=== PATIENT | male | born 1925 | race Caucasian/White ===

== ENCOUNTER 2016-06-03 12:31 | Emergency (ER) | payer MEDICARE, OTHER ==
[~2016-06-03] VITALS: Ht 172.7 cm; Wt 64.5 kg
[2016-06-03 12:37] VITALS: TEMP 98.2
[2016-06-03] MEDS ORDERED: NORVASC 10MG10 MG PO (14:10)
[2016-06-03] MEDS ORDERED: ZOLOFT 50MG50 MG PO (14:10)
[2016-06-03] MEDS ORDERED: PRINIVIL20 MG PO (14:10)
[2016-06-03] MEDS ORDERED: COUMADIN 5MG5 MG/TAB PO (14:11)
[2016-06-03 14:26] LABS: BASO % 0.2 % (0.0-2.0); EOS # 0.1 (0.0-0.7); EOS % 1.1 % (0-4.0); HEMATOCRIT 41.4 % (42.0-52.0); HEMOGLOBIN 14.6 g/dl (13.5-18.0); INR 2.8 (0.8-3.0); LYMPH % 22.6 % (20.0-51.0); MEAN CELL VOLUME 91 fl (80.0-100.0); MEAN CORPUSCULAR HEMOGLOBIN 32 pg (27.0-31.0); MEAN CORPUSCULAR HGB CONC 35 g/dl (33.0-37.0); MEAN PLATELET VOLUME 9.9 fl (7.4-10.4); MONO # 0.4 (0.1-0.6); MONO % 8.9 % (1.7-9.3); PLATELET COUNT 170 K/mm3 (130-400); PROTHROMBIN TIME 31.9 SECONDS (9.7-12.8); RED BLOOD COUNT 4.55 M/mm3 (4.20-5.60); REDCELL DISTRIBUTION WIDTH-CV 11.9 % (11.5-14.5); WHITE BLOOD COUNT 4.5 K/mm3 (4.8-10.8)
[2016-06-03 14:29] LABS: PARTIAL THROMBOPLASTIN TIME 47.4 SECONDS (26.0-37.0)
[2016-06-03 14:32] LABS: ADJUSTED CALCIUM 9.7 mg/dL (8.4-10.2); ALBUMIN 4.3 gm/dL (3.5-5.0); BILIRUBIN,TOTAL 1.2 mg/dL (0.0-1.0); CALCIUM 9.9 mg/dL (8.4-10.2); CREATININE, serum 0.96 mg/dL (0.66-1.25); TOTAL PROTEIN 7.2 gm/dL (6.4-8.2)
[2016-06-03 14:43] LABS: TROPONIN-I 0.013 ng/mL (0.000-0.034)
[2016-06-03 15:53] VITALS: BP 113/77; PULSE 60
== END 2016-06-03 15:54 | disposition home or self-care (01) ==
LOC: COL.ER 12:31
PROVIDERS: Emergency Medicine
DX: R00.2 Palpitations (principal); I10 Essential (primary) hypertension; I47.1 Supraventricular tachycardia; Z79.01 Long term (current) use of anticoagulants

== ENCOUNTER 2017-04-01 08:58 | Day surgery (SDC) | payer MEDICARE, OTHER ==
[~2017-04-01] VITALS: Ht 172.7 cm; Wt 66.6 kg
[~2017-04-01 08:58] MED LIST: COUMADIN 5MG5 MG/TAB PO; NORVASC 10MG10 MG PO; PRINIVIL20 MG PO; ZOLOFT 50MG50 MG PO
[2017-04-01] MEDS ORDERED: CRESTOR5 MG PO (09:22)
[2017-04-01 09:25] VITALS: BP 127/74; PULSE 60; TEMP 96.9
[2017-04-01 11:12] VITALS: BP 107/70; PULSE 62; TEMP 96.9
[2017-04-01 11:30] VITALS: BP 123/74; PULSE 60
[2017-04-01 11:45] VITALS: BP 119/74; PULSE 60
[2017-04-01 12:00] VITALS: BP 133/75; PULSE 60
== END 2017-04-01 14:16 | disposition home or self-care (01) ==
LOC: SDCO 08:58
DX: Z12.11 Encounter for screening for malignant neoplasm of colon (principal); K64.0 First degree hemorrhoids; K57.30 Diverticulosis of large intestine without perforation or abscess without bleeding; I10 Essential (primary) hypertension; I48.91 Unspecified atrial fibrillation; E78.00 Pure hypercholesterolemia, unspecified; F32.9 Major depressive disorder, single episode, unspecified; F41.9 Anxiety disorder, unspecified; Z79.01 Long term (current) use of anticoagulants; Z95.0 Presence of cardiac pacemaker; Z85.828 Personal history of other malignant neoplasm of skin
CPT/HCPCS: OP; J2704; J7030